=== PATIENT | male | born 1945 | race Caucasian/White ===

== ENCOUNTER → 2024-03-30 11:52 | Outpatient (REF) | payer MEDICARE, SELFPAY | LOC: MRI 3T 11:52 | PROVIDERS: ATTENDING PHYSICIAN Specialist; FAMILY PHYSICIAN Student in an Organized Health Care Education/Training Program | DX: M25.551 Pain in right hip (principal) | CPT/HCPCS: 72148; 73721 ==

== ENCOUNTER 2024-05-23 07:40 | Emergency (ER) | payer MEDICARE, SELFPAY ==
[2024-05-23 07:45] VITALS: BP 141/60
[2024-05-23 07:47] VITALS: BP 141/60
[2024-05-23 08:00] VITALS: BP 133/60
[2024-05-23 09:00] VITALS: BP 135/74
--- NOTE | 2024-05-23 09:03 | ED.GENMED ---
History of Present Illness
General
Chief Complaint: Cold/Flu/URI Symptoms
Source: patient
Exam Limitations: none
Time Seen by Provider: 05/23/24 08:16
Nursing documentation reviewed up to this point in time: agreed with
History of Present Illness
History of Present Illness:
Patient is a 78-year-old male presents to the ER via EMS complaining of COVID symptoms. Patient started with symptoms on Tuesday, 4 days ago he tested positive for COVID on Tuesday. His primary complaint is sore throat and bodyaches. He reports
low-grade temperature. Mild cough no shortness of breath. He complains of a lot of phlegm from postnasal drip. He has taken Tylenol for symptoms last dose was at 2:30 AM.
He is trying to drink water . Denies vomiting.
Past History
Past History
ED Past Medical History: HTN
ED Past Surgical History: Other
Social History
Tobacco: Non-smoker
Review of Systems
Review of Systems
Allergies reviewed?: Yes
All Other Systems: ROS reviewed and negative except as documented in HPI and ROS
Constitutional: Reports fever, fatigue and chills
EENT: Reports sore throat
Respiratory: Reports cough; Denies trouble breathing
Cardiac: Reports no symptoms
ABD/GI: Reports no symptoms
: Reports no symptoms
Musculoskeletal: Reports other (body aches )
Skin: Reports no symptoms
Neurological: Reports no symptoms
Hematologic/Lymphatic: Reports no symptoms
Psychiatric: Reports no symptoms
Phy Exam
General Physical Exam
General Presentation: no apparent distress
General age: appears stated age
General Skin: warm and dry
General Habitus: normal
General Mental: alert
General Hydration: appears well hydrated
ENT Exam
ENT Exam: other (throat is red uvula midline no exudate no drooling tolerating secretions well )
Cardiovascular Exam
Cardiovascular Exam: regular rate/rhythm, no murmur and normal peripheral pulses
Pulmonary Exam
Pulmonary Exam: lungs clear, no respiratory distress and other (+ cough )
Neurological Exam
Neurological Exam: alert and oriented x3
Musculoskeletal Exam
Musculoskeletal Exam: full ROM
Skin Exam
Skin Exam: normal color and warm/dry
Psychiatric Exam
Psychiatric Exam: normal mood/affect
Course
Orders/Labs/Results
Orders:
Orders
05/23/24 09:00
Acetaminophen [Tylenol] 1,000 mg PO NOW STA
05/23/24 09:01
Benzocaine/Menthol [Anesthetic Lozenge] 1 lozenge PO NOW STA
Vital Signs
Initial and Last Documented VS:
Initial Vital Signs
BP
141/60
05/23/24 07:45
Last Documented Vital Signs
Temp Pulse Resp BP Pulse Ox
98.4 F 60 16 135/74 94
05/23/24 07:47 05/23/24 07:47 05/23/24 07:47 05/23/24 09:00 05/23/24 09:00
MDM/Problems Addressed
MDM/Problems Addressed:
Patient is well-appearing in no acute distress nonhypoxic nontachypneic lungs are clear tolerating secretions well no drooling. Patient's primary complaint of COVID is very bad sore throat and fatigue muscle aches. Patient took Tylenol the last
dose at 2:30 AM . s/s for over 4 days.
Will d/c with supportive therapy, fluids, cepacol lozenges tylenol .
Chronic conditions affecting care:
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
*Pulse Oximetry
Patient hypoxic: no
*Critical Care Note
Total Time (30-74mins, 75-104mins- exclusive of procedures): Not Applicable
ED Attending Note
-
Portions of this chart may have been created with voice recognition software.� Occasional wrong word or��sound alike� substitutions may have occurred due to the inherent limitations of voice recognition software.
Discharge Plan
Departure
Patient Disposition: Home (Routine Discharge)
Date of Disposition: 05/23/24
Time of Disposition:
Patient with high blood pressure during this ER visit?: Yes
Condition: Fair
Covid-19: Confirmed COVID-19
Discharge Problem:
COVID-19
Instructions: COVID-19 ED, BLOOD PRESSURE
Prescriptions:
No Action
levofloxacin 500 MG tablet
500 mg PO DAILY Qty: 10 0RF
Referrals:
Daniella Cronin MD [Family Provider] -
Activity Restrictions/Additional Instructions:
Be sure to get plenty of rest and stay well-hydrated. Tylenol every 4-6 hours.
As discussed you may try [id number] Cepacol lozenges or Chloraseptic throat spray.
Follow-up with family doctor as needed in the next several days and return if any worsening of symptoms.
Interventions
Interventions:
*Risk Screen - Suicide Last Done: 05/23/24 07:49
*General Assessment Last Done: 05/23/24 07:49
*Neglect/Abuse Screening Last Done: 05/23/24 07:49
ED- Fall Risk Assessment Last Done: 05/23/24 07:50
*ED COVID-19 Vaccine History Last Done: 05/23/24 07:49
ED- Pulmonary Assessment Last Done: 05/23/24 07:49
Discharge Date and Time
Print Language: SPANISH
[2024-05-23] MEDS: ANESTHETIC LOZENGE 1 LOZENGE PO (09:15)
[2024-05-23] MEDS: TYLENOL 1000 MG PO (09:15)
== END 2024-05-23 09:30 | disposition home or self-care (01) ==
LOC: EMR 07:40
PROVIDERS: EMERGENCY PHYSICIAN Emergency Medicine; FAMILY PHYSICIAN Student in an Organized Health Care Education/Training Program
DX: U07.1 COVID-19 (principal); I10 Essential (primary) hypertension
CPT/HCPCS: 99283

== ENCOUNTER → 2024-05-30 13:11 | Outpatient (REF) | payer MEDICARE, SELFPAY ==
[2024-05-30 13:57] LABS: % Basophils 0.4 % (0-2); % Eosinophils 2.3 % (0-6); % Immature Granulocytes 0.5 % (0-0.5); % Monocytes 15.6 % (1.7-9.3); % Neutrophils 55.2 % (42.2-75.2); Absolute Eosinophils 0.1 10^3/uL (0-0.7); Absolute Lymphocytes 1.5 10^3/uL (1.2-3.4); Absolute Monocytes 0.9 10^3/uL (0.1-0.6); Absolute Neutrophils 3.1 10^3/uL (1.4-6.5); Hematocrit 35.6 % (39.0-52.0); Hemoglobin 12.7 g/dL (13.0-18.0); Mean Corp Hgb Conc. 35.7 g/dL (33.0-37.0); Mean Corpuscular Hgb 30.2 pg (27.0-31.0); Mean Corpuscular Volume 84.6 fL (80.0-94.0); Mean Platelet Volume 10.5 fL (7.4-10.4); Nucleated Red Blood Cells % 0 % (-); Platelet Count 260 10^3/uL (130-400); Red Blood Cell Count 4.21 10^6/uL (4.70-6.10); Red Cell Dist. Width 13.4 % (11.5-14.5); White Blood Cell Count 5.6 10^3/uL (4.8-10.8)
[2024-05-30 15:12] LABS: ALT (SGPT) 48 U/L (0-50); AST (SGOT) 46 U/L (17-59); Albumin 4.3 g/dl (3.5-5.0); Alkaline Phosphatase 49 U/L (38-126); Blood Urea Nitrogen 32 mg/dl (9-20); Carbon Dioxide 29 mmol/L (22-30); Chloride 92 mmol/L (98-107); Glucose 93 mg/dl (70-99); Potassium 4.3 mmol/L (3.5-5.1); Sodium 130 mmol/L (135-145); Total Bilirubin 0.6 mg/dl (0.2-1.3); Total Protein 6.7 g/dl (6.3-8.2); eGFR > 60.00
== END ==
LOC: RAD 13:11
PROVIDERS: ATTENDING PHYSICIAN Student in an Organized Health Care Education/Training Program
DX: R07.89 Other chest pain (principal); R06.02 Shortness of breath; U07.1 COVID-19; R53.1 Weakness
CPT/HCPCS: 36415; 71046; 80053; 85025; 85379

== ENCOUNTER 2024-07-27 23:12 | Emergency (ER) | payer MEDICARE, SELFPAY ==
[2024-07-27 23:21] VITALS: BP 141/70
--- NOTE | 2024-07-27 23:53 | ED.GENMED ---
History of Present Illness
General
Chief Complaint: Male Genito-Urinary Symptoms
Source: patient
Time Seen by Provider: 07/27/24 23:30
History of Present Illness
History of Present Illness:
78-year-old male presents to the emergency room due to lack of urine output from his Coleman catheter. Patient had prostate surgery on July 25. He was discharged with a catheter. He is noted bloody urine from the catheter and now it will not
drain. He is experiencing some spasms of his bladder and leakage around the catheter. Surgery was performed at [place].
Past History
Past History
ED Past Medical History: HTN
ED Past Surgical History: Other
Social History
Tobacco: Non-smoker
Phy Exam
Physical Exam
Physical Exam:
General: Awake, Alert, Oriented X3. No acute distress.
Vitals: unremarkable
Head: Atraumatic
Eyes: Pupils equal, EOMI
Neck: Trachea midline
Lungs: Clear and equal b/l
Heart: Regular rate, no murmurs
Abd: Soft, suprapubic fullness and mild tenderness, No pulsatile mass
Neuro: Nonfocal
Skin: Warm, dry, no rash
Extremities: pulses equal b/l, no edema
Course
Orders/Labs/Results
Orders:
Orders
07/28/24 00:35
0.9% Sodium Chloride 1000 ml [Nss] 1,000 ml IV BOLUS
07/28/24 00:43
Basic Metabolic Panel Urgent
Complete Blood Count/With Diff Urgent
Abnormal Lab Results
07/28/24
00:43
RBC 3.22 L 10^6/uL
(4.70-6.10)
Hgb 10.1 L g/dL
(13.0-18.0)
Hct 27.3 L %
(39.0-52.0)
MCH 31.4 H pg
(27.0-31.0)
MPV 10.8 H fL
(7.4-10.4)
Absolute Lymphs (auto) 1.1 L 10^3/uL
(1.2-3.4)
Absolute Monos (auto) 0.8 H 10^3/uL
(0.1-0.6)
Neutrophils % 76.8 H %
(42.2-75.2)
Lymphocytes % 12.6 L %
(20.5-51.1)
Monocytes % 9.4 H %
(1.7-9.3)
Chloride 95 L mmol/L
(98-107)
BUN 33 H mg/dl
(9-20)
Glucose 101 H mg/dl
(70-99)
07/28/24 00:43
07/28/24 00:43
Vital Signs
Initial and Last Documented VS:
Initial Vital Signs
Temp Pulse Resp BP Pulse Ox
97.6 F 67 20 141/70 100
07/27/24 23:21 07/27/24 23:21 07/27/24 23:21 07/27/24 23:21 07/27/24 23:21
Last Documented Vital Signs
Temp Pulse Resp BP Pulse Ox
97.6 F 56 16 125/52 98
07/27/24 23:21 07/28/24 01:29 07/28/24 01:29 07/28/24 01:29 07/28/24 01:29
MDM/Problems Addressed
Differential Diagnosis Includes:
Coleman catheter obstruction, dehydration, renal failure
MDM/Problems Addressed:
Patient presents with lack of urine output through his catheter a couple days after prostate surgery. Coleman flushes easily. CBI was initiated for short period of time with no clots and no significant hematuria. Patient did not have significant
retention on bladder scan. Patient feels much better after IV fluids and the above interventions. Patient was using only a leg bag and we will provide him with a bedside bag as well.
*Pulse Oximetry
Patient hypoxic: no
*Critical Care Note
Total Time (30-74mins, 75-104mins- exclusive of procedures): Not Applicable
ED Attending Note
-
Portions of this chart may have been created with voice recognition software.� Occasional wrong word or��sound alike� substitutions may have occurred due to the inherent limitations of voice recognition software.
Discharge Plan
Departure
Patient Disposition: Home (Routine Discharge)
Date of Disposition: 07/28/24
Time of Disposition: 01:40
Patient with high blood pressure during this ER visit?: No
Discharge Problem:
Complication, blocked Coleman catheter, Acute dehydration
Instructions: How to Care for Your Coleman Catheter, Male
Prescriptions:
No Action
levofloxacin 500 MG tablet
500 mg PO DAILY Qty: 10 0RF
Referrals:
Daniella Cronin MD [Family Provider] -
Interventions
Interventions:
*Risk Screen - Suicide Last Done: 07/28/24 00:16
*General Assessment Last Done: 07/28/24 00:16
*Neglect/Abuse Screening Last Done: 07/28/24 00:16
ED- Fall Risk Assessment Last Done: 07/28/24 01:58
*ED COVID-19 Vaccine History Last Done: 07/28/24 00:16
*Nursing Disposition Last Done: 07/28/24 01:58
ED-Male Genitourinary Assessment Last Done: 07/28/24 00:16
Discharge Date and Time
Discharge Date/Time: 07/28/24 01:58
Print Language: CZECH
[2024-07-28] MEDS: NSS 1000 IV (00:43)
[2024-07-28 00:57] LABS: % Basophils 0.2 % (0-2); % Eosinophils 0.8 % (0-6); % Immature Granulocytes 0.2 % (0-0.5); % Lymphocytes 12.6 % (20.5-51.1); % Monocytes 9.4 % (1.7-9.3); % Neutrophils 76.8 % (42.2-75.2); Absolute Eosinophils 0.1 10^3/uL (0-0.7); Absolute Lymphocytes 1.1 10^3/uL (1.2-3.4); Absolute Monocytes 0.8 10^3/uL (0.1-0.6); Absolute Neutrophils 6.4 10^3/uL (1.4-6.5); Hematocrit 27.3 % (39.0-52.0); Hemoglobin 10.1 g/dL (13.0-18.0); Mean Corpuscular Hgb 31.4 pg (27.0-31.0); Mean Corpuscular Volume 84.8 fL (80.0-94.0); Mean Platelet Volume 10.8 fL (7.4-10.4); Nucleated Red Blood Cells % 0 % (-); Platelet Count 190 10^3/uL (130-400); Red Blood Cell Count 3.22 10^6/uL (4.70-6.10); Red Cell Dist. Width 14.3 % (11.5-14.5); White Blood Cell Count 8.3 10^3/uL (4.8-10.8)
[2024-07-28 01:10] LABS: Blood Urea Nitrogen 33 mg/dl (9-20); Calcium 8.8 mg/dl (8.4-10.2); Carbon Dioxide 29 mmol/L (22-30); Chloride 95 mmol/L (98-107); Glucose 101 mg/dl (70-99); Potassium 3.5 mmol/L (3.5-5.1); Sodium 135 mmol/L (135-145); eGFR > 60.00
[2024-07-28 01:29] VITALS: BP 125/52
== END 2024-07-28 01:58 | disposition home or self-care (01) ==
LOC: EMR 23:12
PROVIDERS: EMERGENCY PHYSICIAN Emergency Medicine; FAMILY PHYSICIAN Student in an Organized Health Care Education/Training Program
DX: T83.091A Other mechanical complication of indwelling urethral catheter, initial encounter (principal); E86.0 Dehydration; X58.XXXA Exposure to other specified factors, initial encounter; I10 Essential (primary) hypertension
CPT/HCPCS: 99283; 96360; 80048; 85025

== ENCOUNTER 2024-07-28 11:58 | Emergency (ER) | payer MEDICARE, SELFPAY ==
[2024-07-28 12:04] VITALS: BP 136/58
--- NOTE | 2024-07-28 12:33 | ED.GENMED ---
History of Present Illness
General
Chief Complaint: Catheter/Tube Problem
Source: patient, records and spouse
Exam Limitations: none
Time Seen by Provider: 07/28/24 12:21
Nursing documentation reviewed up to this point in time: agreed with
History of Present Illness
History of Present Illness:
78-year-old male presents emergency room complaining of blood clots and difficulty draining his urine. He had prostate surgery on Tuesday by Dr. Kem Iraheta at [place]. He called his urologist, who told him to come see him in [place], but
the patient was already on his way here.
Past History
Past History
ED Past Medical History: HTN
ED Past Surgical History: Other
Social History
Tobacco: Non-smoker
Review of Systems
Review of Systems
Allergies reviewed?: Yes
All Other Systems: Not applicable
Constitutional: Reports no symptoms
EENT: Reports no symptoms
Respiratory: Reports no symptoms
Cardiac: Reports no symptoms
ABD/GI: Reports no symptoms
: Reports difficulty voiding and bleeding
Musculoskeletal: Reports no symptoms
Skin: Reports no symptoms
Neurological: Reports no symptoms
Endocrine: Reports no symptoms
Hematologic/Lymphatic: Reports no symptoms
Psychiatric: Reports no symptoms
Phy Exam
Physical Exam
Physical Exam:
Physical Exam
General: no apparent distress, not acutely ill
Neck: supple. no meningeal signs. normal posterior pharynx
Heart: s1/s2 regular rate and rhythm, no murmur. equal radial
pulses.
HEENT: Pupils equal round reactive to light, EOMI
Lungs: no acute respiratory distress. clear bilaterally
Abdomen: Soft, not tender. no CVAT
Urology: claros catheter in place, clots in bag
Neuro: alert and oriented. no focal neurological deficits
Skin: no rash
Psychiatric: well kept. interactive and cooperative
Extremities: no edema. good distal pulses
Course
Vital Signs
Initial and Last Documented VS:
Initial Vital Signs
Temp Pulse Resp BP Pulse Ox
97.8 F 55 16 136/58 100
07/28/24 12:04 07/28/24 12:04 07/28/24 12:04 07/28/24 12:04 07/28/24 12:04
Last Documented Vital Signs
Temp Pulse Resp BP Pulse Ox
97.8 F 55 16 136/56 100
07/28/24 12:04 07/28/24 12:04 07/28/24 12:04 07/28/24 13:00 07/28/24 13:01
MDM/Problems Addressed
Differential Diagnosis Includes:
Urinary retention
MDM/Problems Addressed:
78-year-old male with clogged Claros with blood clots.
Chronic conditions affecting care: HTN
Acute Exacerbation and/or Progression of Chronic Illness: HTN
*Critical Care Note
Total Time (30-74mins, 75-104mins- exclusive of procedures): Not Applicable
Patient Management
Discussion with other providers: Systems Accountant (Discussed with urology Dr. Iraheta)
Escalation/DeEscalation of care consider admission/obs:
Admit not indicated
ED Attending Note
-
Portions of this chart may have been created with voice recognition software.� Occasional wrong word or��sound alike� substitutions may have occurred due to the inherent limitations of voice recognition software.
Discharge Plan
Departure
Patient Disposition: Home (Routine Discharge)
Date of Disposition: 07/28/24
Time of Disposition: 14:20
Patient with high blood pressure during this ER visit?: Yes
Condition: Good
Discharge Problem:
Complication, blocked Claros catheter
Instructions: How to Care for Your Claros Catheter, Male, BLOOD PRESSURE
Prescriptions:
No Action
levofloxacin 500 MG tablet
500 mg PO DAILY Qty: 10 0RF
Referrals:
Kem Iraheta, [Non-Admitting Privileges] - Call in 1-3 days for appt
Daniella Cronin MD [Family Provider] -
Interventions
Interventions:
*Risk Screen - Suicide Last Done: 07/28/24 13:06
*General Assessment Last Done: 07/28/24 13:06
*Neglect/Abuse Screening Last Done: 07/28/24 13:06
*ED COVID-19 Vaccine History Last Done: 07/28/24 13:06
DS-Ncoipd-Zctmijigip Assessment Last Done: 07/28/24 13:06
ED-Male Genitourinary Assessment Last Done: 07/28/24 13:06
Discharge Date and Time
Print Language: LITHUANIAN
[2024-07-28 12:56] VITALS: BP 142/59
[2024-07-28 13:00] VITALS: BP 136/56
[2024-07-28 14:00] VITALS: BP 137/55
== END 2024-07-28 14:49 | disposition home or self-care (01) ==
LOC: EMR 11:58
PROVIDERS: EMERGENCY PHYSICIAN Emergency Medicine; FAMILY PHYSICIAN Student in an Organized Health Care Education/Training Program
DX: T83.091A Other mechanical complication of indwelling urethral catheter, initial encounter (principal); X58.XXXA Exposure to other specified factors, initial encounter; I10 Essential (primary) hypertension
CPT/HCPCS: 99282

== ENCOUNTER → 2024-09-12 14:42 | Outpatient (REF) | payer MEDICARE, SELFPAY | LOC: RCS 14:42 | PROVIDERS: ATTENDING PHYSICIAN Student in an Organized Health Care Education/Training Program | DX: R00.1 Bradycardia, unspecified (principal) | CPT/HCPCS: 93306 ==

== ENCOUNTER → 2025-05-03 15:08 | Outpatient (REF) | payer MEDICARE, SELFPAY | LOC: PAVMRI 15:08 | PROVIDERS: ATTENDING PHYSICIAN Student in an Organized Health Care Education/Training Program; OTHER PHYSICIAN Neurological Surgery | DX: M54.16 Radiculopathy, lumbar region (principal) | CPT/HCPCS: 72148 ==

== ENCOUNTER → 2025-06-05 13:38 | Outpatient (REF) | payer MEDICARE, SELFPAY | LOC: RAD 13:38 | PROVIDERS: ATTENDING PHYSICIAN Student in an Organized Health Care Education/Training Program | DX: R25.2 Cramp and spasm (principal) | CPT/HCPCS: 93922; 93925 ==